=== PATIENT | male | born 1935 | race Caucasian/White ===

== ENCOUNTER 2017-06-09 13:23 | Emergency (ER) | payer MEDICARE, MEDICAID ==
[2017-06-09 16:05] LABS: CHLORIDE,CL 104 mEq/L (98-106); SODIUM,NA 142 mEq/L (136-145)
--- NOTE | 2017-06-09 16:08 | EDM.PDOC ---
ED HPI GENERAL MEDICAL PROBLEM - General Chief Complaint: Respiratory Problem Stated Complaint: shortness of breath Time Seen by Provider: 06/09/17 13:40 Source of Information: Reports: Patient, Family, Group Home Records, Old Records History Limitations: Reports: Altered Mental Status - History of Present Illness INITIAL COMMENTS - FREE TEXT/NARRATIVE: Patient presents via ambulance with increased lethargy, cough and congestion past 2 days. states has been a resident at the [facility] for 3 years with diagnosis of Dementia. Has not been eating past 24 hours and unable to take oral medications. with POA present and considering comfort measures only.See ROS Onset: Gradual Onset Date: 06/07/17 Onset Time: 08:00 Duration: Getting Worse Associated Symptoms: Reports: Confusion, Cough, Loss of Appetite, Malaise, Weakness. Denies: Nausea/Vomiting, Shortness of Breath Treatments [employer]ER: Reports: Other (see below) - Related Data Allergies Allergy/AdvReac Type Severity Reaction Status Date / Time Iodinated Contrast- Oral and Allergy Cannot Verified 06/09/17 15:21 IV Dye Remember Home Meds: Home Meds Acetaminophen [Acetaminophen Extra Strength] 1,000 mg PO Q4H PRN 06/09/17 [ History] Furosemide [Lasix] 40 mg PO BID 06/09/17 [History] Gabapentin [Neurontin] 300 mg PO TID 06/09/17 [History] Polyethylene Glycol 3350 [Miralax] 8.5 gm PO DAILY 06/09/17 [History] Past Medical History HEENT History: Reports: Cataract Cardiovascular History: Reports: Hypertension Respiratory History: Reports: Bronchitis, Recurrent, PE, Pneumonia, Recurrent Neurological History: Reports: Alzheimers Disease Psychiatric History: Reports: Alzheimers Disease, Anxiety Endocrine/Metabolic History: Reports: Diabetes, Type II - Past Surgical History Head Surgeries/Procedures: Reports: None Cardiovascular Surgical History: Reports: Varicose Social & Family History - Tobacco Use Smoking Status *Q: Never Smoker Years of Tobacco use: 62 Used Tobacco, but Quit: Yes Month Tobacco Last Used: 1999 Second Hand Smoke Exposure: No - Alcohol Use Days Per Week of Alcohol Use: 0 Number of Drinks Per Day: 3 Total Drinks Per Week: 0 - Recreational Drug Use Recreational Drug Use: No - Living Situation & Occupation Living situation: Reports: , with Spouse Occupation: Retired ED ROS GENERAL - Review of Systems Review Of Systems: See Below Constitutional: Reports: Malaise, Weakness, Decreased Appetite HEENT: Reports: Ear Pain Respiratory: Reports: Shortness of Breath, Cough, Sputum. Denies: Hemoptysis Cardiovascular: Reports: No Symptoms Endocrine: Reports: Fatigue GI/Abdominal: Reports: No Symptoms : Reports: No Symptoms Musculoskeletal: Reports: No Symptoms, Other (Wheel chair bound does go to BR with minimal assist) Skin: Reports: No Symptoms Neurological: Reports: Confusion Psychiatric: Reports: Agitation Hematologic/Lymphatic: Reports: No Symptoms Immunologic: Reports: No Symptoms ED EXAM, GENERAL - Physical Exam Exam: See Below Exam Limited By: Altered Mental Status General Appearance: WD/WN, Mild Distress, Obese Eye Exam: Bilateral Eye: EOMI, Normal Fundi, Normal Inspection, PERRL Ears: Normal External Exam, Normal Canal, Normal TMs, Hearing Loss Ear Exam: Bilateral Ear: Auricle Normal, Canal Normal, TM normal Nose: Normal Inspection, Normal Mucosa, No Blood Throat/Mouth: Normal Inspection, Normal Lips, Normal Teeth, Normal Gums, Normal Oropharynx, Normal Voice, No Airway Compromise Head: Atraumatic, Normocephalic. No: Facial Swelling Neck: Normal Inspection, Supple, Non-Tender, Full Range of Motion Respiratory/Chest: Decreased Breath Sounds, Crackles, Rales Cardiovascular: Regular Rate, Rhythm (Edema 2+ non pitting BLE) Peripheral Pulses: 2+: Radial (L), Radial (R), Posterior Tibial (L), Posterior Tibial (R), Dorsalis Pedis (L), Dorsalis Pedis (R) GI/Abdominal: Soft, Non-Tender (Male) Exam: Deferred Rectal (Males) Exam: Deferred Back Exam: Normal Inspection. No: Paraspinal Tenderness Extremities: Pedal Edema, Slow Capillary Refill Neurological: Slow to Respond Psychiatric: Flat Affect Skin Exam: Warm, Dry, Intact, Normal Color, No Rash Lymphatic: No Adenopathy Course - Vital Signs Last Recorded V/S: Last Vital Signs Temp 36.4 C 06/09/17 13:32 Pulse 77 06/09/17 13:32 Resp 20 06/09/17 13:32 BP 139/74 06/09/17 13:32 Pulse Ox 90 L 06/09/17 13:32 - Orders/Labs/Meds Orders: Active Orders 24 hr Category Date Time Status CXR [Chest 1V Frontal] [CR] Stat Exams 06/09/17 13:53 Taken UA W/MICROSCOPIC [URIN] Stat Lab 06/09/17 15:23 Uncollected EKG 12 Lead [EK] Routine Ther 06/09/17 13:53 Ordered Labs: Laboratory Tests 06/09/17 06/09/17 Range/Units 15:50 15:50 WBC 11.9 H (5.0-10.0) 10^3/uL RBC 4.46 L (4.50-6.00) 10^6/uL Hgb 12.9 L (14.0-18.0) g/dL Hct 42.3 (40.0-54.0) % MCV 94.8 H (82.0-94.0) fL MCH 28.9 (27.0-32.0) pg MCHC 30.5 L (33.0-38.0) g/dL RDW Coeff of Abiola 14.9 (11.0-15.0) % Plt Count 246 (150-400) 10^3/uL Neut % (Auto) 74.8 (35-85) % Lymph % (Auto) 11.6 (10-55) % [place] % (Auto) 11.8 (0-16) % Eos % (Auto) 1.5 (0-5) % Baso % (Auto) 0.3 (0-3) % Neut # (Auto) 8.86 H (1.80-7.00) 10^3/uL Lymph # (Auto) 1.38 (1.00-4.80) 10^3/uL [place] # (Auto) 1.40 H (0.00-0.80) 10^3/uL Eos # (Auto) 0.18 (0.00-0.45) 10^3/uL Baso # (Auto) 0.03 10^3/uL Sodium 142 (136-145) mEq/L Potassium 3.6 (3.5-5.0) mEq/L Chloride 104 (98-106) mEq/L Carbon Dioxide 35 H (21-32) mmol/L BUN 18 (7-18) mg/dL Creatinine 1.1 (0.7-1.3) mg/dL Est Cr Clr Drug Dosing 58.79 mL/min Estimated GFR (MDRD) > 60 (>=60) mL/min Glucose 107 H (75-99) mg/dL Calcium 9.7 (8.4-10.1) mg/dL Total Bilirubin 0.6 (0.0-1.0) mg/dL AST 16 (15-37) U/L ALT 25 (12-78) U/L Alkaline Phosphatase 70 (46-116) U/L C-Reactive Protein 11.7 H (0.2-0.8) mg/dL Total Protein 7.2 (6.4-8.2) g/dL Albumin 3.0 L (3.4-5.0) g/dL Meds: Medications Discontinued Medications Generic Name Dose Route Start Last Admin Trade Name Laly PRN Reason Stop Dose Admin Ceftriaxone Sodium 1 gm 06/09/17 17:09 Rocephin IM 06/09/17 17:10 ONETIME ONE Departure - Departure Time of Disposition: 17:41 Disposition: Home, Self-Care 01 Condition: Poor Clinical Impression: Pneumonia - Discharge Information Forms: ED Department Discharge Additional Instructions: Discussed with poor prognosis and she verbalizes she does not want him admitted to hospital. She requests return to Group Home. She states she wants comfort measures only. She agrees to continuation of O2 3L/min via nasal cannula to keep saturations greater than 90%. She would like antibiotic coverage Rocephin injection tonight and continuation of antibiotic coverage for pneumonia for next 4 days. She will review with family future requests and notify PCP as indicated. MLP Sign Off - Signature Requirements MLP Sign Off: No - Problem List & Annotations (1) Pneumonia SNOMED Code(s): 830868749 Code(s): J18.9 - PNEUMONIA, UNSPECIFIED ORGANISM Status: Acute Current Visit: Yes Qualifiers: Aspiration pneumonia type: unspecified Laterality: bilateral - Problem List Review Problem List Initiated/Reviewed/Updated: Yes - My Orders Last 24 Hours: My Active Orders 06/09/17 13:53 CXR [Chest 1V Frontal] [CR] Stat EKG 12 Lead [EK] Routine 06/09/17 15:23 UA W/MICROSCOPIC [URIN] Stat - Assessment/Plan Last 24 Hours: My Active Orders 06/09/17 13:53 CXR [Chest 1V Frontal] [CR] Stat EKG 12 Lead [EK] Routine 06/09/17 15:23 UA W/MICROSCOPIC [URIN] Stat Assessment:: Pneumonia- Discussed with poor prognosis and she verbalizes she does not want him admitted to hospital. She requests return to Group Home. She states she wants comfort measures only. She agrees to continuation of O2 3L/min via nasal cannula to keep saturations greater than 90%. She would like antibiotic coverage Rocephin injection tonight and continuation of antibiotic coverage for pneumonia for next 4 days. She will review with family future requests and notify PCP as indicated. Plan: Discussed with poor prognosis and she verbalizes she does not want him admitted to hospital. She requests return to Group Home. She states she wants comfort measures only. She agrees to continuation of O2 3L/min via nasal cannula to keep saturations greater than 90%. She would like antibiotic coverage Rocephin injection tonight and continuation of antibiotic coverage for pneumonia for next 4 days. She will review with family future requests and notify PCP as indicated. Return to [place] continue previous and new current orders.
[2017-06-09] MEDS ORDERED: cefTRIAXone 1 GM Vial IM ONE (17:09)
[2017-06-09] MEDS ORDERED: cefTRIAXone 1 GM Vial IM SCH (17:45)
[2017-06-09 18:40] VITALS: BP 148/68
== END 2017-06-09 17:55 | disposition home or self-care (01) ==
LOC: CC.ED 13:23
DX: J18.9 Pneumonia, unspecified organism (principal); F41.9 Anxiety disorder, unspecified; G30.9 Alzheimer's disease, unspecified; F02.80 Dementia in other diseases classified elsewhere, unspecified severity, without behavioral disturbance, psychotic disturbance, mood disturbance, and anxiety; I10 Essential (primary) hypertension; Z91.041 Radiographic dye allergy status
CPT/HCPCS: 36415; 71010; 80053; 85025; 86140; 93005; 96374; 99285; J0696; 93010; 96372